=== PATIENT | female | born 2000 | race Two or more races ===

== ENCOUNTER 2022-09-23 15:07 | Emergency (ER) | payer MEDICAID, OTHER ==
[~2022-09-23] VITALS: Ht 160 cm; Wt 59.0 kg
[2022-09-23 15:17] VITALS: BP 137/97
[2022-09-23 16:52] LABS: Urine Specific Gravity 1.009 (1.001-1.035)
[2022-09-23 16:53] LABS: Urine Blood 3+ /uL (Negative)
== END 2022-09-24 00:06 | disposition left against medical advice (07) ==
LOC: ER 15:07
DX: R35.0 Frequency of micturition (principal); R30.0 Dysuria; Z53.21 Procedure and treatment not carried out due to patient leaving prior to being seen by health care provider
CPT/HCPCS: 81003